=== PATIENT | male | born 1950 | race Caucasian/White ===

== ENCOUNTER → 2020-10-09 | Outpatient (CLI) | payer MEDICARE, OTHER ==
[~2020-10-09] MED LIST: ALDACTONE50 MG PO; ALL DAY ALLERGY10 M2 PO; AMARYL4 MG PO; DIGOX125 MCG PO; GLUCOPHAGE500 MG PO; HEMOCYTE324 MG PO; LASIX 40 MG TAB40 MG PO; LASIX20 MG PO; LEVEMIR FL100 UNIT/1 SQ; LIPITOR40 MG PO; LOPRESSOR 25 MG25 MG PO; MULTI-VITAMIN1 EACH PO; POTASSIUM CHLO20 ME1 PO; PROTONIX40 MG PO; XARELTO20 MG PO
== END ==
LOC: HEART 5 09-25 09:15
DX: I48.91 Unspecified atrial fibrillation (principal); Z01.810 Encounter for preprocedural cardiovascular examination; I51.9 Heart disease, unspecified
CPT/HCPCS: 78452; A9502; J2785

== ENCOUNTER → 2020-10-22 | Outpatient (CLI) | payer MEDICARE, OTHER | LOC: KOH-I 14:12 | DX: K76.9 Liver disease, unspecified (principal); K74.60 Unspecified cirrhosis of liver | CPT/HCPCS: 36415; 71250; 80053; 82105; 83735; 85025; 85610 ==

== ENCOUNTER 2022-01-23 23:17 | Inpatient (IN) | payer MEDICARE, OTHER ==
[~2022-01-23] VITALS: Ht 182.9 cm; Wt 112.7 kg
[~2022-01-23 23:17] MED LIST changes: +LANTUS SOL100 UNIT/1 SQ; -LEVEMIR FL100 UNIT/1 SQ
[2022-01-24 00:40] LABS: HEMOGLOBIN 10.5 gm/dl (14.0-17.5); RED BLOOD COUNT 3.7 M/UL (4.20-5.50); WHITE BLOOD COUNT 4.2 K/UL (4.5-11.0)
[2022-01-24] MEDS ORDERED: ISOSORBIDE MONO30 MG PO (09:48)
[2022-01-24] MEDS ORDERED: METOPROLOL SUCC25 MG PO (09:49)
[2022-01-24] MEDS ORDERED: XARELTO20 MG PO (09:49)
[2022-01-24] MEDS ORDERED: SPIRONOLACTONE50 MG PO (09:50)
[2022-01-24] MEDS ORDERED: ALLEGRA ALLERGY60 MG PO (09:50)
[2022-01-25 01:57] LABS: HEMOGLOBIN 9.6 gm/dl (14.0-17.5); WHITE BLOOD COUNT 3.5 K/UL (4.5-11.0)
[2022-01-25 02:00] LABS: RED BLOOD COUNT 3.32 M/UL (4.20-5.50)
[2022-01-25 02:20] LABS: BUN/CREATININE RATIO 26 (0-10)
[2022-01-26 01:48] LABS: HEMOGLOBIN 9.4 gm/dl (14.0-17.5); RED BLOOD COUNT 3.38 M/UL (4.20-5.50); WHITE BLOOD COUNT 3.8 K/UL (4.5-11.0)
[2022-01-26 01:56] LABS: BUN/CREATININE RATIO 25 (0-10)
[2022-01-27 02:18] LABS: HEMOGLOBIN 9.5 gm/dl (14.0-17.5); RED BLOOD COUNT 3.36 M/UL (4.20-5.50); WHITE BLOOD COUNT 3.8 K/UL (4.5-11.0)
[2022-01-27] MEDS ORDERED: DOXYCYCLINE HY100 M2 PO (15:56)
[2022-01-27] MEDS ORDERED: OMNICEF 300 MG300 MG PO (15:56)
== END 2022-01-27 17:40 | disposition home or self-care (01) | DRG 291 ==
LOC: ER1 23:17 → PROG CARE 01-24 02:30 → CDU 01-24 02:30 → PROG CARE 01-24 07:42
PROVIDERS: Internal Medicine; Student in an Organized Health Care Education/Training Program; ADMIT Internal Medicine
DX: I11.0 Hypertensive heart disease with heart failure (principal); I50.33 Acute on chronic diastolic (congestive) heart failure; I48.20 Chronic atrial fibrillation, unspecified; D61.818 Other pancytopenia; Z20.822 Contact with and (suspected) exposure to COVID-19; L03.116 Cellulitis of left lower limb; L03.115 Cellulitis of right lower limb; E87.1 Hypo-osmolality and hyponatremia; E87.2 Acidosis; R00.1 Bradycardia, unspecified; I27.20 Pulmonary hypertension, unspecified; D69.6 Thrombocytopenia, unspecified; E11.9 Type 2 diabetes mellitus without complications; D64.9 Anemia, unspecified; E11.40 Type 2 diabetes mellitus with diabetic neuropathy, unspecified; T50.2X5A Adverse effect of carbonic-anhydrase inhibitors, benzothiadiazides and other diuretics, initial encounter; E66.9 Obesity, unspecified; N28.9 Disorder of kidney and ureter, unspecified; I87.2 Venous insufficiency (chronic) (peripheral); Z87.891 Personal history of nicotine dependence; Z90.49 Acquired absence of other specified parts of digestive tract; Z83.3 Family history of diabetes mellitus; Z80.9 Family history of malignant neoplasm, unspecified; Z88.8 Allergy status to other drugs, medicaments and biological substances; Z68.32 Body mass index [BMI] 32.0-32.9, adult; Z86.73 Personal history of transient ischemic attack (TIA), and cerebral infarction without residual deficits
CPT/HCPCS: 0240U; 36415; 71045; 80048; 80053; 80162; 82565; 82962; 83036; 83735; 83880; 85025; 85027; 93005; 93270; 97110; 97161; 99285; J0696; J1940; J2405; J3475; P9047